=== PATIENT | female | born 1985 | race Two or more races ===

== ENCOUNTER 2022-11-14 09:25 | Emergency (ER) | payer MEDICAID, OTHER ==
[~2022-11-14] VITALS: Ht 160 cm; Wt 73.0 kg
[2022-11-14 10:12] LABS: Basophils # (auto) 0 10 ^3/uL (0-0.2); Basophils % (auto) 0.3 % (0.0-2.0); Eosinophils # (auto) 0.1 10 ^3/uL (0-0.8); Hematocrit 40.2 % (36.0-46.0); Hemoglobin 13.8 g/dL (12.2-16.2); Lymphocytes # (auto) 1.9 10 ^3/uL (0.4-5.4); Lymphocytes % (auto) 29.2 % (10.0-50.0); Mean Corpuscular Hemoglobin 31.3 pg (28.0-32.0); Mean Corpuscular Hgb Conc. 34.2 g/dL (32.0-36.0); Mean Corpuscular Volume 91.5 fL (80.0-100.0); Monocytes # (auto) 0.5 10 ^3/uL (0-1.3); Monocytes % (auto) 8.2 % (0.0-12.0); Neutrophils % (auto) 61.3 % (37.0-80.0); Nucleated Red Blood Cells % 0.1 %; Red Cell Distribution Width 14.6 % (11.8-14.3); White Blood Cell 6.5 10^3/uL (4.4-10.8)
[2022-11-14 10:28] LABS: Urine Bacteria NONE SEEN /hpf (None Seen); Urine Blood Negative /uL (Negative); Urine Specific Gravity 1.013 (1.001-1.035); Urine WBC 2 /hpf (0 - 5)
[2022-11-14 10:41] LABS: Albumin 3.9 g/dL (3.4-5.0); BUN/Creatinine Ratio 12.9; Bilirubin, Total 0.5 mg/dL (0.2-1.0); Calcium 8.7 mg/dL (8.5-10.1); Potassium 3.7 mmol/L (3.5-5.1); Total Protein 7.5 g/dL (6.4-8.2)
[2022-11-14] MEDS ORDERED: NITR-87 PO (11:44)
[2022-11-14] MEDS ORDERED: HYDROcodone-ACET 10/325MG TAB PO ONE (11:45)
[2022-11-14 13:06] VITALS: BP 102/66
== END 2022-11-14 13:10 | disposition home or self-care (01) ==
LOC: ER 09:25
DX: K46.9 Unspecified abdominal hernia without obstruction or gangrene (principal); N39.0 Urinary tract infection, site not specified; R10.2 Pelvic and perineal pain; F12.10 Cannabis abuse, uncomplicated
CPT/HCPCS: 36415; 74176; 80053; 81001; 84702; 85025

== ENCOUNTER 2023-03-07 16:36 | Emergency (ER) | payer MEDICAID ==
[~2023-03-07] VITALS: Ht 160 cm; Wt 76.5 kg
[~2023-03-07 16:36] MED LIST: NITR-87 PO
[2023-03-07] MEDS ORDERED: ACETAMINOPHEN 325 MG TAB PO ONE (19:45)
[2023-03-07 20:54] VITALS: BP 134/83
== END 2023-03-07 21:03 | disposition home or self-care (01) ==
LOC: ER 16:36
DX: T25.222A Burn of second degree of left foot, initial encounter (principal); T25.221A Burn of second degree of right foot, initial encounter; T79.9XXA Unspecified early complication of trauma, initial encounter; F15.90 Other stimulant use, unspecified, uncomplicated; Z79.899 Other long term (current) drug therapy; Z98.890 Other specified postprocedural states; X11.8XXA Contact with other hot tap-water, initial encounter; Y93.89 Activity, other specified; Y92.89 Other specified places as the place of occurrence of the external cause; Y99.8 Other external cause status